=== PATIENT | female | born 1985 | race Caucasian/White ===

== ENCOUNTER → 2018-05-16 | Outpatient (REF) | payer OTHER | LOC: M LAB REF 12:02 | PROVIDERS: ATTEND Student in an Organized Health Care Education/Training Program | DX: K90.0 Celiac disease (principal); D80.2 Selective deficiency of immunoglobulin A [IgA]; K22.70 Barrett's esophagus without dysplasia; R14.0 Abdominal distension (gaseous); R10.31 Right lower quadrant pain ==

== ENCOUNTER → 2018-06-11 | Outpatient (CLI) | payer OTHER ==
[2018-06-11 19:07] LABS: IMMUNOGLOBULIN A < 7.8 MG/DL (70-400); IMMUNOGLOBULIN E 70.3 IU/ML (<100); IMMUNOGLOBULIN G 1590 MG/DL (681-1648); RUBELLA IgG QUALITATIVE IMMUNE (IMMUNE)
[2018-06-15 17:07] LABS: IgG SERUM (part of Subclasses) 1546 mg/dL (700-1600); IgG Subclass 1 1070 mg/dL (248-810); IgG Subclass 2 406 mg/dL (130-555); IgG Subclass 3 80 mg/dL (15-102); IgG Subclass 4 59 mg/dL (2-96)
[2018-06-17 00:07] LABS: IMMUNOGLOBULIN D <1.34 mg/dL (<14.11); STREP PNEUMO TYPE 1 <0.1 ug/mL (>1.3); STREP PNEUMO TYPE 12F <0.1 ug/mL (>1.3); STREP PNEUMO TYPE 14 <0.1 ug/mL (>1.3); STREP PNEUMO TYPE 18C 0.5 ug/mL (>1.3); STREP PNEUMO TYPE 19A 2.3 ug/mL (>1.3); STREP PNEUMO TYPE 19F 0.4 ug/mL (>1.3); STREP PNEUMO TYPE 23F <0.1 ug/mL (>1.3); STREP PNEUMO TYPE 3 <0.1 ug/mL (>1.3); STREP PNEUMO TYPE 4 <0.1 ug/mL (>1.3); STREP PNEUMO TYPE 6B 0.1 ug/mL (>1.3); STREP PNEUMO TYPE 7F <0.1 ug/mL (>1.3); STREP PNEUMO TYPE 8 <0.1 ug/mL (>1.3); STREP PNEUMO TYPE 9N 0.1 ug/mL (>1.3); STREP PNEUMO TYPE 9V <0.1 ug/mL (>1.3)
[2018-06-17 14:12] LABS: ANTI TETANUS ANTIBODY 6.05 IU/mL (<0.10)
== END ==
LOC: M SMT 10:33
PROVIDERS: ATTEND Allergy & Immunology Allergy
DX: D80.2 Selective deficiency of immunoglobulin A [IgA] (principal); J32.4 Chronic pansinusitis; R53.81 Other malaise; R53.83 Other fatigue

== ENCOUNTER → 2018-08-06 | Outpatient (CLI) | payer OTHER ==
[2018-08-06 17:22] LABS: PERCENT SATURATION 11.4 % (13.2-45.0)
[2018-08-06 17:23] LABS: BASO # 0.1 10^3/uL (0.0-0.2); BASO % 1.4 % (0.0-1.0); EOS # 0.3 10^3/uL (0.0-0.50); HEMATOCRIT 37.8 % (36.0-47.0); HEMOGLOBIN 11.7 g/dl (12.0-15.5); LYMPH # 1.4 10^3/uL (1.5-4.5); LYMPH % 33.4 % (24.0-44.0); MEAN CORPUSCULAR VOLUME 80.8 fl (80.0-96.0); MONO # 0.5 10^3/uL (0.0-0.8); MONO % 12.2 % (0.0-5.0); NEUTROPHILS % 46.8 % (36.0-66.0); PLATELET COUNT, AUTOMATED 243 10^3/uL (150-450); RED BLOOD COUNT 4.68 10^6/uL (4.00-5.40); WHITE BLOOD COUNT 4.2 10^3/uL (4.0-10.0)
== END ==
LOC: M SMT 10:30
PROVIDERS: ATTEND Physician Assistant
DX: D64.9 Anemia, unspecified (principal)

== ENCOUNTER → 2018-08-06 | Outpatient (CLI) | payer OTHER ==
[2018-08-12 08:06] LABS: STREP PNEUMO TYPE 1 2.1 ug/mL (>1.3); STREP PNEUMO TYPE 12F <0.1 ug/mL (>1.3); STREP PNEUMO TYPE 14 <0.1 ug/mL (>1.3); STREP PNEUMO TYPE 18C 4.3 ug/mL (>1.3); STREP PNEUMO TYPE 19A 7.1 ug/mL (>1.3); STREP PNEUMO TYPE 23F 0.5 ug/mL (>1.3); STREP PNEUMO TYPE 3 0.3 ug/mL (>1.3); STREP PNEUMO TYPE 4 0.2 ug/mL (>1.3); STREP PNEUMO TYPE 6B 9.8 ug/mL (>1.3); STREP PNEUMO TYPE 7F 0.2 ug/mL (>1.3); STREP PNEUMO TYPE 8 2.9 ug/mL (>1.3); STREP PNEUMO TYPE 9N 1.5 ug/mL (>1.3); STREP PNEUMO TYPE 9V 1.7 ug/mL (>1.3)
[2018-08-16 00:07] LABS: IgA ULTRASENSITIVE 0.2 mg/dL (72-321)
== END ==
LOC: M SMT 10:25
PROVIDERS: ATTEND Allergy & Immunology Allergy
DX: D84.9 Immunodeficiency, unspecified (principal)

== ENCOUNTER → 2018-08-14 | Outpatient (REF) | payer OTHER | LOC: M SFHCPLAZ 15:50 | PROVIDERS: ATTEND Internal Medicine Infectious Disease | DX: L29.0 Pruritus ani (principal) ==

== ENCOUNTER → 2018-08-26 | Outpatient (CLI) | payer OTHER ==
--- NOTE | 2018-08-31 12:52 | SLEEPMSLT ---
DATE OF PROCEDURE: 08/26/2018 and . Refer REFERRING PROVIDER: LANDRY Alejandro. INTERPRETATION: Nocturnal polysomnography followed by an multiple sleep latency test (MSLT) was performed in this patient who reports a history of narcolepsy. She was not on any medications and we did not have a copy of her previous study(s) so it was felt best to start with re-evaluation. PART 1 POLYSOMNOGRAM: A total of 8 hours and 7 minutes of data was reviewed with 126 minutes of sleep identified. Sleep latency was 2 minutes. REM latency was 251 minutes. All stages of sleep were observed. Sleep efficiency was 89.7%. EKG showed normal sinus rhythm with an average heart rate of 70 beats per minute. No epileptiform discharge observed. There were two respiratory events identified of 10 seconds in duration or longer, one central and one obstructive, for an apnea/hypopneic index (AHI) 0.30. Respiratory-related arousal (RERA) index was 0.6 giving a total respiratory disturbance index (RDI) of 0.9. Mean oxygen saturation for the study was 95% with a minimum recorded value of 91%. Arousal index was 8.3 with a majority of arousals related to limb movements. Periodic limb movement index was elevated 56.1. IMPRESSION: 1. Snoring, minimal, no evidence of his significant sleep disordered breathing including observation of supine REM sleep. 2. Periodic limb movements, moderate. RECOMMENDATION: Given that there is no evidence was significant sleep disordered breathing and over six hours of sleep was seen, recommend going on to an MSLT. PART 2, MSLT: An MSLT consisting of four naps followed a polysomnogram that had demonstrated 426 minutes of sleep and no significant sleep disordered breathing. Mean sleep latency for the four naps was 3 minutes with a range of 1 minute to 4.5 minutes. No SOREMs were seen. IMPRESSION: Abnormal MSLT following normal polysomnogram consistent with hypersomnia. MTDD
== END ==
LOC: M SLEEP 19:55
PROVIDERS: ATTEND Internal Medicine Pulmonary Disease
DX: R06.83 Snoring (principal); G47.61 Periodic limb movement disorder

== ENCOUNTER → 2018-10-13 | Outpatient (REF) | payer OTHER ==
[2018-10-13 12:23] LABS: BASO % 0.9 % (0.0-1.0); EOS # 0.2 10^3/uL (0.0-0.50); EOS % 5.4 % (0.0-3.0); HEMATOCRIT 39.3 % (36.0-47.0); HEMOGLOBIN 12.3 g/dl (12.0-15.5); LYMPH # 1.3 10^3/uL (1.5-4.5); LYMPH % 37.6 % (24.0-44.0); MEAN CORPUSCULAR HEMOGLOBIN 26.1 pg (27.0-33.0); MEAN CORPUSCULAR HGB CONC 31.3 g/dl (32.0-36.5); MEAN CORPUSCULAR VOLUME 83.4 fl (80.0-96.0); MONO # 0.3 10^3/uL (0.0-0.8); MONO % 10.1 % (0.0-5.0); NEUTROPHILS # 1.5 10^3/uL (1.8-7.7); NEUTROPHILS % 45.7 % (36.0-66.0); PLATELET COUNT, AUTOMATED 229 10^3/uL (150-450); RED BLOOD COUNT 4.71 10^6/uL (4.00-5.40); WHITE BLOOD COUNT 3.4 10^3/uL (4.0-10.0)
[2018-10-13 12:45] LABS: ERYTHROCYTE SEDIMENTATION RATE 7 mm/hr (0-20)
[2018-10-13 12:51] LABS: C REACTIVE PROTEIN QUANTITATIV < 0.30 MG/DL (0.00-0.30); COMPLEMENT C3 93 MG/DL (90-180); COMPLEMENT C4 16 MG/DL (10-40)
[2018-10-17 00:08] LABS: ASPERGILLUS GALACTOMANNAN AG 0.11 Index (0.00-0.49); M003-IGE ASPERGILLUS fumigatus <0.10 kU/L (Class 0)
== END ==
LOC: M SFHCPLAZ 10:50
PROVIDERS: ATTEND Internal Medicine Infectious Disease
DX: J32.9 Chronic sinusitis, unspecified (principal)

== ENCOUNTER → 2018-11-10 | Outpatient (REF) | payer OTHER ==
[2018-11-10 10:56] LABS: ALBUMIN 3.9 GM/DL (3.2-5.2); ALT/SGPT 16 U/L (12-78); BILIRUBIN,TOTAL 0.4 MG/DL (0.2-1.0); BLOOD UREA NITROGEN 11 MG/DL (7-18); CALCIUM LEVEL 9.1 MG/DL (8.5-10.1); CARBON DIOXIDE LEVEL 26 MEQ/L (21-32); CHLORIDE LEVEL 105 MEQ/L (98-107); CREATININE FOR GFR 0.87 MG/DL (0.55-1.30); FERRITIN 11 NG/ML (8-252); FREE T4 0.99 NG/DL (0.76-1.46); GLOMERULAR FILTRATION RATE > 60.0 (>60); GLUCOSE, FASTING 91 MG/DL (70-100); IRON (FE) 37 UG/DL (50-170); PERCENT SATURATION 9.3 % (13.2-45.0); SODIUM LEVEL 138 MEQ/L (136-145); TOTAL IRON BINDING CAPACITY 400 UG/DL (250-450); TOTAL PROTEIN 7.7 GM/DL (6.4-8.2)
[2018-11-10 10:57] LABS: CORTISOL BASELINE 16.1 UG/DL (4.3-22.4)
== END ==
LOC: M SFHCPLAZ 09:15
PROVIDERS: ATTEND Internal Medicine Infectious Disease
DX: R53.82 Chronic fatigue, unspecified (principal)
CPT/HCPCS: 80053; 82533; 82728; 83550; 84439; 84443; G0463

== ENCOUNTER → 2019-04-30 | Outpatient (REF) | payer OTHER | LOC: M LAB REF 19:43 | PROVIDERS: ATTEND Dermatology | DX: D48.9 Neoplasm of uncertain behavior, unspecified (principal) | CPT/HCPCS: 11102; 88305; 88341; 88342; G0463 ==